=== PATIENT | male | born 1960 | race Caucasian/White ===

== ENCOUNTER 2019-07-04 11:49 | Emergency (ER) | payer OTHER ==
[~2019-07-04] VITALS: Ht 177.8 cm; Wt 86.4 kg
[~2019-07-04 11:49] MED LIST: CEPHALEXIN500 M1 PO; CRESTOR20 MG PO; NORCO 325 MG-51 TAB PO; PERCOCET 325 MG1 TA2 PO; PHENERGAN 25 TA25 MG PO; SIMVASTATIN20 MG PO
[2019-07-04 14:32] VITALS: BP 132/76; PULSE 76; TEMP 98.2
== END 2019-07-04 14:34 | disposition home or self-care (01) ==
LOC: COL.ER 11:49
DX: S83.91XA Sprain of unspecified site of right knee, initial encounter (principal); E78.5 Hyperlipidemia, unspecified; X50.9XXA Other and unspecified overexertion or strenuous movements or postures, initial encounter

== ENCOUNTER 2019-11-05 18:29 | Emergency (ER) | payer BC ==
[~2019-11-05] VITALS: Ht 180.3 cm; Wt 86.4 kg
[2019-11-05 18:59] VITALS: TEMP 97.6
[2019-11-05 19:37] LABS: BASO % 0.3 % (0.0-2.0); EOS # 0.1 (0.0-0.7); EOS % 1.3 % (0-4.0); GRAN # 5.3 (1.4-6.5); GRAN % 76.1 % (42.2-75.2); HEMATOCRIT 48.8 % (42.0-52.0); HEMOGLOBIN 16.4 g/dl (13.5-18.0); LYMPH # 1.2 (1.2-3.4); LYMPH % 17.5 % (20.0-51.0); MEAN CELL VOLUME 91 fl (80.0-100.0); MEAN CORPUSCULAR HEMOGLOBIN 31 pg (27.0-31.0); MEAN CORPUSCULAR HGB CONC 34 g/dl (33.0-37.0); MEAN PLATELET VOLUME 9.1 fl (7.4-10.4); MONO # 0.3 (0.1-0.6); MONO % 4.1 % (1.7-9.3); PLATELET COUNT 227 K/mm3 (130-400); RED BLOOD COUNT 5.34 M/mm3 (4.20-5.60); REDCELL DISTRIBUTION WIDTH-CV 13.2 % (11.5-14.5)
[2019-11-05 19:53] LABS: STREP SCREEN NEGATIVE
[2019-11-05 19:54] LABS: ALANINE AMINOTRANSFERASE 32 U/L (21-72); ALBUMIN 4.5 gm/dL (3.5-5.0); ALKALINE PHOSPHATASE 84 U/L (50-136); ANION GAP 12 mmol/L (7-16); AST,SGOT 38 U/L (15-37); BILIRUBIN,TOTAL 0.4 mg/dL (0.0-1.0); BLOOD UREA NITROGEN 23 mg/dL (9-20); C-REACTIVE PROTEIN 1.4 mg/dL (0.0-0.9); CALCIUM 9.3 mg/dL (8.4-10.2); CARBON DIOXIDE 25 mmol/L (22-30); CHLORIDE 105 mmol/L (98-107); CREATININE, serum 1.15 (0.66-1.25); GLUCOSE 154 mg/dL (74-106); POTASSIUM 4.1 mmol/L (3.4-5.0); SODIUM 142 mmol/L (137-145)
[2019-11-05 20:10] LABS: TROPONIN-I < 0.012 ng/mL (0.000-0.035)
[2019-11-05 20:51] VITALS: BP 137/83
[2019-11-05] MEDS ORDERED: PREDNISONE20 MG PO (21:05)
[2019-11-05 22:30] VITALS: PULSE 75
== END 2019-11-05 22:25 | disposition home or self-care (01) ==
LOC: COL.ER 18:29
PROVIDERS: Emergency Medicine
DX: T36.1X5A Adverse effect of cephalosporins and other beta-lactam antibiotics, initial encounter (principal); R55 Syncope and collapse
CPT/HCPCS: J1200; J7030; J7512